=== PATIENT | female | born 1980 | race African-American/Black ===

== ENCOUNTER 2023-06-10 19:16 | Emergency (ER) | payer MEDICARE, MEDICAID ==
[~2023-06-10] VITALS: Ht 162.6 cm; Wt 60.0 kg
[2023-06-10 19:22] VITALS: O2SAT 97
[2023-06-10 19:52] VITALS: BP 138/69; PULSE 78; RESP 12; TEMP 97
== END 2023-06-10 20:08 | disposition home or self-care (01) ==
LOC: ER 19:16
DX: T65.891A Toxic effect of other specified substances, accidental (unintentional), initial encounter (principal); Z88.6 Allergy status to analgesic agent; Z98.890 Other specified postprocedural states; Y92.89 Other specified places as the place of occurrence of the external cause
CPT/HCPCS: 82962; 99283